=== PATIENT | female | born 1995 | race Caucasian/White ===

== ENCOUNTER 2017-09-09 16:10 | Emergency (ER) | payer BC ==
[2017-09-09 16:14] VITALS: TEMP 98.2
--- NOTE | 2017-09-09 16:45 | PDOC ---
History of Present Illness <Derek Gautam - Last Filed: 09/09/17 17:44> - General History Source: Patient Exam Limitations: No Limitations <Jeronimo Cesar - Last Filed: 09/09/17 19:20> - General Chief Complaint: Chest Pain Stated Complaint: CHEST PAIN Time Seen by Provider: 09/09/17 16:34 - History of Present Illness Initial Comments: 09/09/17 19:19 The patient is a 21 year old female, with a significant past medical history of anxiety/panic attacks(not on any Meds), who presents to the emergency department with chest pain and shortness of breath for several days. The patient reports she has been waking up in the middle of the night, because she feels as if she cant breathe and has to catch her breath. She reports intermittent chest pain for approximately 1 year, which she describes as sharp, but is nonradiating, with episodes lasting between seconds-minutes. Patient reports her pain is nonexertional, nonpleuritic, and is not exacerbated with food or activity. She denies any associated diaphoresis, palpitations, or lower extremity edema. Patient reports a cough productive of green/clear sputum for approximately 3 months, but denies any fever, chills, hemoptysis, headache, or dizziness. Patient reports she is not on any oral contraceptive. Patients LMP was approximately 1.5 weeks ago. She reports mild intermittent upper abdominal pain, but denies any nausea, vomiting, diarrhea, or constipation. She denies any dysuria, hematuria, frequency, or urgency. She denies any recent travel or sick contacts. Allergies: Penicillins Past Surgical History: None reported Social History: Non smoker. No ETOH or recreational drug use. PCP: Dr. Griffin Hopkins (Jeronimo Cesar) Past History - Past Medical History COPD: No Psychiatric Problems: Yes (anxiety, panic attacks) - Suicide/Smoking/Psychosocial Hx Smoking History: Never smoked Hx Alcohol Use: No Drug/Substance Use Hx: No Substance Use Type: None <Derek Gautam - Last Filed: 09/09/17 17:44> <Jeronimo Cesar - Last Filed: 09/09/17 19:20> - Past Medical History Allergies/Adverse Reactions: Allergies Allergy/AdvReac Type Severity Reaction Status Date / Time Penicillins Allergy Verified 09/09/17 16:14 Home Medications: Ambulatory Orders NK [No Known Home Medication] 09/09/17 Review of Systems <Derek Gautam - Last Filed: 09/09/17 17:44> - Review of Systems Able to Perform ROS?: Yes <Jernoimo Cesar - Last Filed: 09/09/17 19:20> - Review of Systems Comments:: 09/09/17 19:19 CONSTITUTIONAL: No reported: Fever, Chills, Diaphoresis, Generalized Weakness, Malaise, Loss of Appetite HEENT: No reported: Rhinorrhea, Nasal Congestion, Throat Pain, Throat Swelling, Difficulty Swallowing, Mouth Swelling, Ear Pain, Eye Pain, Visual Changes CARDIOVASCULAR: +chest pain, +shortness of breath No reported: Syncope, Palpitations, Irregular Heart Rate, Lightheadedness, Peripheral Edema RESPIRATORY: +Cough productive of green/clear sputum, +Shortness of Breath No reported: SOB with Exertion, Orthopnea, Wheezing, Stridor, Hemoptysis GASTROINTESTINAL: No reported: Abdominal Distension, Nausea, Vomiting, Diarrhea, Constipation, Melena, Hematochezia GENITOURINARY: No reported: Dysuria, Frequency, Urgency, Hesitancy, Flank Pain, Genital Pain MUSCULOSKELETAL: No reported: Myalgia, Arthralgia, Joint Swelling, Back pain, Neck Pain SKIN: No reported: Rash, Itching, Pallor HEMEATOLOGIC/IMMUNOLOGIC: No reported: Easy Bleeding, Easy Bruising, Lymphadenopathy, Frequent infections ENDOCRINE: No reported: Unexplained Weight Gain, Unexplained Weight Loss, Heat Intolerance , Cold Intolerance NEUROLOGIC: No reported: Headache, Focal Weakness, Paresthesias, Vertigo, Lightheadedness, Unsteady Gait, Seizure, Mental Status Changes, Incontinence PSYCHIATRIC: No reported: Anxiety, Depression (Jeronimo Cesar) *Physical Exam <Derek Gautam - Last Filed: 09/09/17 17:44> <Jeronimo Cesar - Last Filed: 09/09/17 19:20> - Vital Signs Last Vital Signs Temp Pulse Resp BP Pulse Ox 98.2 F 80 16 108/56 100 09/09/17 16:11 09/09/17 18:08 09/09/17 18:08 09/09/17 18:08 09/09/17 16:11 - Physical Exam Comments: 09/09/17 19:19 GENERAL: The patient is awake, alert, and fully oriented, Nontoxic - in no acute distress. HEAD: Normocephalic, atraumatic. EYES: extraocular movements intact, sclera anicteric, conjunctiva clear. ENT: Normal voice, Moist mucous membranes. NECK: Normal range of motion, supple LUNGS: Breath sounds equal, clear to auscultation bilaterally. No wheezes, no rhonchi, no rales. HEART: Regular rate and rhythm, without murmur, rub or gallop. ABDOMEN: Soft, nontender, normoactive bowel sounds. No guarding, no rebound.No CVA tenderness EXTREMITIES: Normal range of motion, no edema. No clubbing or cyanosis. No cords, erythema, or tenderness. NEUROLOGICAL: No facial assymetry, Normal speech, PSYCH: Normal mood, normal affect. SKIN: Warm, Dry, normal turgor. (Jeronimo Cesar) Heart Score/ECG Review <Derek Gautam - Last Filed: 09/09/17 17:44> <Jeronimo Cesar - Last Filed: 09/09/17 19:20> - ECG Impressions Comment:: 09/09/17 17:44 Twelve-lead EKG was performed and reviewed by me. There is normal sinus rhythm with a normal rate. Rate of 71 The axis is normal. The intervals are normal. There is normal R wave progression There are no ST or T wave abnormalities. Impression: sinus arrythmia (Derek Gautam) Medical Decision Making <Derek Gautam - Last Filed: 09/09/17 17:44> <Jeronimo Cesar - Last Filed: 09/09/17 19:20> - Medical Decision Making 09/09/17 17:05 21y F hx of anxiety presents with complaints of with complaint of intermittent sob (feeling like she cant catch her breath when she wakes up), and intermittent cp x 1 year that is sporatic, nonexertional, non pleuritic, lasting anywhere from seconds to minutes. pt also endorses some cough for th past 2 months w/o associated leg swelling, hemotpsyis. not on ocps. pts exam unremarkable will otain ekg to scren for acute disease cxr to r/o pna, cardiomegaly if neg anticiapt fu with pmd 09/09/17 17:46 cxr neg for acute pathology ekg w/ sinus arrythmia will dc with pmd fu return precautions were discussed I discussed the physical exam findings, ancillary test results and final diagnoses with the patient. I answered all of the patient's questions. The patient was satisfied with the care received and felt comfortable with the discharge plan and treatment plan. The patient will call their primary care physician within 24 hours to arrange follow-up and will return to the Emergency Department with any new, persistent or worsening symptoms. (Derek Gautam) *DC/Admit/Observation/Transfer - Discharge Dispostion Admit: No <Derek Gautam - Last Filed: 09/09/17 17:44> <Jeronimo Cesar - Last Filed: 09/09/17 19:20> Diagnosis at time of Disposition: Atypical chest pain - Discharge Dispostion Disposition: HOME Condition at time of disposition: Improved - Referrals Referrals: Griffin Hopkins MD [Primary Care Provider] - - Patient Instructions Printed Discharge Instructions: DI for Atypical Chest Pain Additional Instructions: Return to the emergency department immediately with ANY new, persistent or worsening symptoms. You MUST call and follow up with your doctor tomorrow for further evaluation of your symptoms. Results were discussed with you. Please make sure your doctor reviews the results of your emergency evaluation. If you had any xrays during your visit, it was read preliminarily by myself, a Radiologist will review it and if there are any additional findings we will call you. Print Language: KOREAN - Attestations Scribe Attestion: 09/09/17 19:20 Documentation prepared by Jeronimo Cesar, acting as medical transport specialist for Derek Gautam MD. (Jeronimo Cesar)
[2017-09-09 18:09] VITALS: BP 108/56; PULSE 80
--- NOTE | 2017-09-10 08:46 | EKG ---
Test Reason : Blood Pressure : / mmHG Vent. Rate : 071 BPM Atrial Rate : 071 BPM P-R Int : 150 ms QRS Dur : 080 ms QT Int : 384 ms P-R-T Axes : 036 016 021 degrees QTc Int : 417 ms SINUS RHYTHM WITH MARKED SINUS ARRHYTHMIA OTHERWISE NORMAL ECG NO PREVIOUS ECGS AVAILABLE Confirmed by REX SANDRA, ARON ([id number]) on 09/10/2017 8:46:33 AM Referred By: Confirmed By:ARON GOODMAN MD
== END 2017-09-09 18:09 | disposition home or self-care (01) ==
LOC: JER 16:10
DX: R07.89 Other chest pain (principal); F41.0 Panic disorder [episodic paroxysmal anxiety]
CPT/HCPCS: 71020-TC; 93005; 93010; 99282-25

== ENCOUNTER 2018-06-16 15:28 | Emergency (ER) | payer BC ==
[2018-06-16 15:51] VITALS: BP 113/72; PULSE 89; TEMP 98.8; BMI 20.7
--- NOTE | 2018-06-16 16:45 | PDOC ---
History of Present Illness - General Chief Complaint: Respiratory Stated Complaint: Shortness of Breath Time Seen by Provider: 06/16/18 16:28 History Source: Patient Exam Limitations: No Limitations - History of Present Illness Possible Cause: Yes: no prior episodes Associated Symptoms: reports: cough, nasal congestion, nasal drainage. denies: chest pain/soreness, dizziness, earache, facial pain, fever/chills, headache, lightheadedness, muscle aches, shortness of breath, sore throat, wheezing Past History - Travel Traveled outside of the country in the last 30 days: No Close contact w/someone who was outside of country & ill: No - Past Medical History Allergies/Adverse Reactions: Allergies Allergy/AdvReac Type Severity Reaction Status Date / Time Penicillins Allergy Verified 06/16/18 15:50 Home Medications: Ambulatory Orders Benzonatate [Tessalon Pearls -] 100 mg PO TID #21 capsule 06/16/18 Cetirizine HCl 10 mg PO DAILY 30 Days #30 tablet 06/16/18 COPD: No Psychiatric Problems: Yes (anxiety, panic attacks) - Suicide/Smoking/Psychosocial Hx Smoking History: Current some day smoker Information on smoking cessation initiated: No Hx Alcohol Use: No Drug/Substance Use Hx: No Substance Use Type: None Respiratory Specific PMHX - Complaint Specific PMHX Angina: No Review of Systems - Review of Systems Able to Perform ROS?: Yes Is the patient limited Croatian proficient: No Constitutional: No: Chills, Fever Respiratory: Yes: Cough, Productive cough. No: Orthopnea, Shortness of Breath, SOB with Exertion, SOB at Rest, Stridor, Wheezing, Hemoptysis Cardiac (ROS): No: Chest Pain, Palpitations, Syncope, Chest Tightness ABD/GI: No: Abdominal Distended, Abd. Pain w/ defecation, Blood Streaked Bowels , Constipated, Diarrhea : No: Dysuria, Discharge Musculoskeletal: No: Gout, Joint Pain Integumentary: No: Bruising Neurological: No: Headache, Numbness, Paresthesia, Seizure, Weakness Psychiatric: No: Frequent Crying, Change in Appetite Endocrine: No: Flushing Hematologic/Lymphatic: No: Blood Clots *Physical Exam - Vital Signs Last Vital Signs Temp Pulse Resp BP Pulse Ox 98.8 F 89 18 113/72 100 06/16/18 15:48 06/16/18 15:48 06/16/18 15:48 06/16/18 15:48 06/16/18 15:48 - Physical Exam General Appearance: Yes: Nourished Neck: positive: Supple Respiratory/Chest: positive: Lungs Clear, Normal Breath Sounds Cardiovascular: positive: Regular Rhythm, Regular Rate, S1, S2 Gastrointestinal/Abdominal: positive: Normal Bowel Sounds, Flat, Soft Musculoskeletal: positive: Normal Inspection Extremity: positive: Normal Capillary Refill, Normal Inspection, Normal Range of Motion Integumentary: positive: Normal Color Neurologic: positive: customs and immigration officer II-XII NML intact, Fully Oriented, Alert, Normal Mood/ Affect, Motor Strength 02/10 ED Treatment Course - RADIOLOGY Radiology Studies Ordered: Category Date Time Status CHEST PA & LAT [RAD] Stat Radiology 06/16/18 16:40 Ordered Medical Decision Making - Medical Decision Making 06/16/18 16:43 Physical 22-year-old female, intermitent smoker([facility]) presents with chest congestion for several months and intermittent cough. Patient denies fever chills nausea vomiting chest pain. Vital signs stable lungs were clear on examination. I will obtain a chest x-ray given + smoking history smoking cessation advised 06/16/18 17:46 Preliminary chest x-ray reveal no acute pathology Patient will be discharge URI instructions *DC/Admit/Observation/Transfer Diagnosis at time of Disposition: URI, acute - Discharge Dispostion Disposition: HOME Condition at time of disposition: Stable Decision to Admit order: No - Prescriptions Prescriptions: Benzonatate [Tessalon Pearls -] 100 mg PO TID #21 capsule Cetirizine HCl 10 mg PO DAILY 30 Days #30 tablet - Referrals Referrals: Griffin Hopkins MD [Primary Care Provider] - - Patient Instructions Printed Discharge Instructions: Common Cold Additional Instructions: I discussed the physical exam findings, ancillary test results and final diagnoses with the patient. I answered all of the patient's questions. The patient was satisfied with the care received and felt comfortable with the discharge plan and treatment plan. The patient will call their primary care physician within 24 hours to arrange follow-up and will return to the Emergency Department with any new, persistant or worsening symptoms. - Post Discharge Activity
== END 2018-06-16 17:54 | disposition home or self-care (01) ==
LOC: JERFT 15:28
DX: J06.9 Acute upper respiratory infection, unspecified (principal); F41.9 Anxiety disorder, unspecified; F41.0 Panic disorder [episodic paroxysmal anxiety]; F17.210 Nicotine dependence, cigarettes, uncomplicated
CPT/HCPCS: 71046-TC-FY; 84703; 99281-25

== ENCOUNTER 2020-12-17 22:37 | Emergency (ER) | payer BC ==
[2020-12-17 23:07] VITALS: BP 105/61; PULSE 90; TEMP 98.5; BMI 20.5
[2020-12-18] MEDS ORDERED: ONDANSETRON *ODT* 4 MG TABLET SL ONE (00:49)
[2020-12-18] MEDS ORDERED: ONDANSETRON *ODT* 4 MG TABLET ONE (01:11)
== END 2020-12-18 01:21 | disposition left against medical advice (07) ==
LOC: JER 22:37
DX: R10.9 Unspecified abdominal pain (principal)
CPT/HCPCS: 99283-25; Q0162

== ENCOUNTER 2023-01-25 02:02 | Emergency (ER) | payer BC ==
[2023-01-25 02:25] VITALS: BP 110/80; PULSE 71; RESP 18; TEMP 98; BMI 21.6
[2023-01-25 02:49] LABS: THROAT:GRP A STREP NOT DETECTED (NOTDETECTED)
[2023-01-25] MEDS ORDERED: predniSONE 20 MG TABLET (UD) PO SCH (10:00)
== END 2023-01-25 03:32 | disposition home or self-care (01) ==
LOC: JER 02:02
DX: R09.81 Nasal congestion (principal); J34.89 Other specified disorders of nose and nasal sinuses; J30.2 Other seasonal allergic rhinitis; Z20.822 Contact with and (suspected) exposure to COVID-19
CPT/HCPCS: 0241U-QW; 87651; 99283-25